=== PATIENT | female | born 1980 | race Hispanic/Latino ===

== ENCOUNTER 2017-11-17 16:45 | Emergency (ER) | payer OTHER ==
[~2017-11-17] VITALS: Ht 152.4 cm; Wt 58.4 kg
[2017-11-17 18:40] VITALS: BP 100/68
== END 2017-11-17 18:40 | disposition home or self-care (01) ==
LOC: EME 16:45
DX: Z71.1 Person with feared health complaint in whom no diagnosis is made (principal)
CPT/HCPCS: 99281; 99283